=== PATIENT | male | born 1975 | race Caucasian/White ===

== ENCOUNTER 2017-06-17 11:00 | Emergency (ER) | payer OTHER ==
[2017-06-17 11:16] VITALS: O2SAT 97
--- NOTE | 2017-06-17 11:25 | CPEKG ---
Heart Rate: 93 RR Interval: 645 P-R Interval: 140 QRSD Interval: 90 QT Interval: 364 QTC Interval: 453 P Tupman: 37 QRS Tupman: 54 T Wave Tupman: 10 EKG Severity - NORMAL ECG - EKG Impression: SINUS RHYTHM Electronically Signed By: Christine Patel 17-Jun-2017 14:54:26
[2017-06-17 11:31] LABS: PLATELET COUNT 335 10^3/uL (150-400)
--- NOTE | 2017-06-17 11:43 | EDPHY ---
H & P Stated Complaint: dizzy, diaphoretic Time Seen by Provider: 06/17/17 11:20 HPI/ROS: CHIEF COMPLAINT: Diaphoresis, dizziness HISTORY OF PRESENT ILLNESS: 41-year-old male with a known history of hypertension for which he is currently off medications states that he was at work at 10:30 a.m. This morning and started to feel dizziness, diaphoresis, tremulous, noted numbness to his bilateral fingers, felt disoriented. He was taken by his to an urgent care and they recommend he come to the ER. In the ER currently states that he is feeling improvement in symptoms. At no point has he experienced slurred speech, gait instability, chest pain, dyspnea, back or flank pain. Normal urinary habits. PRIMARY CARE PROVIDER: No primary care provider REVIEW OF SYSTEMS: A ten point review of systems was performed and is negative with the exception of the items mentioned in the HPI PAST MEDICAL & SURGICAL HISTORY: Hypertension. Off of antihypertensives x 1 year SOCIAL HISTORY: Nonsmoker no drug use. PHYSICAL EXAM (Prior to examination, patient consented to physical exam, hands were washed and my usual and customary physical exam procedures followed) 1) GENERAL: Well-developed, well-nourished, alert and oriented. Appears to be in no acute distress. 2) HEAD: Normocephalic, atraumatic 3) HEENT: Pupils equal, round, reactive to light bilaterally. Sclera anicteric. Nasopharynx, oropharynx, clear, no lesions. Ears bilaterally with normal tympanic membranes. 4) NECK: Full range of motion, no meningeal signs. No carotid bruit 5) LUNGS: Clear auscultation bilaterally, no wheezes, no rhonchi, no retractions. 6) HEART: Regular rate and rhythm, no murmur, no heave, no gallop. 7) ABDOMEN: No guarding, no rebound, no focal tenderness, negative McBurney's, negative Strange's, negative Rovsing's, negative peritoneal sign, 8) MUSCULOSKELETAL: Moving all extremities, no focal areas of tenderness, no obvious trauma. No peripheral edema or discoloration. 9) BACK: No CVA tenderness, no midline vertebral tenderness, no fluctuance, no step-off, no obvious trauma, no visual or palpable abnormality. 10) SKIN: No rash, no petechiae. 11) Psychiatric: Patient is oriented X 3, there is no agitation. DIFFERENTIAL DIAGNOSIS: In no particular include but not limited to TIA, CVA, CT, acute anxiety, hyperthyroidism - Personal History Current Tetanus/Diphtheria Vaccine: Unsure Current Tetanus Diphtheria and Acellular Pertussis (TDAP): Unsure - Medical/Surgical History Hx Asthma: No Hx Chronic Respiratory Disease: No Hx Diabetes: No Hx Cardiac Disease: No Hx Renal Disease: No Hx Cirrhosis: No Hx Alcoholism: No Hx HIV/AIDS: No Hx Splenectomy or Spleen Trauma: No Other PMH: HTN, - Social History Smoking Status: Never smoked Constitutional: Initial Vital Signs Temperature (C) 37 C 06/17/17 11:13 Heart Rate 96 06/17/17 11:13 Respiratory Rate 16 06/17/17 11:13 Blood Pressure 177/131 H 06/17/17 11:13 O2 Sat (%) 97 06/17/17 11:13 O2 Delivery Mode Room Air Allergies/Adverse Reactions: No Known Allergies Allergy (Unverified 06/17/17 11:13) Home Medications: Medication Instructions Recorded amLODIPine BESYLATE [Norvasc 5 mg 5 mg PO DAILY #30 tab 06/17/17 (*)] Medical Decision Making ED Course/Re-evaluation: The patient was re-evaluated with serial examinations most recently at 10:07 p.m.. He is resting comfortably. He remains hypertensive. I discussed the case with secondary supervising physician Dr. Patel in the ER. According the patient's earlier symptoms I think that CT, CVA, TIA less than likely. We discussed there may be a component of anxiety related to his symptoms. He has a known history of hypertension and currently is hypertensive. Doubt hypertensive crisis. We recommended starting the patient on Norvasc 5 mg recommended keeping a blood pressure diary and stabbing primary care which I have provided him. - Data Points Laboratory Results: Laboratory Results 06/17/17 11:25 06/17/17 11:25 06/17/17 06/17/17 11:25 11:25 WBC 8.68 10^3/uL 10^3/uL (3.80-9.50) RBC 4.97 10^6/uL 10^6/uL (4.40-6.38) Hgb 15.6 g/dL g/dL (13.7-17.5) Hct 45.2 % % (40.0-51.0) MCV 90.9 fL fL (81.5-99.8) MCH 31.4 pg pg (27.9-34.1) MCHC 34.5 g/dL g/dL (32.4-36.7) RDW 13.3 % % (11.5-15.2) Plt Count 335 10^3/uL 10^3/uL (150-400) MPV 9.9 fL fL (8.7-11.7) Neut % (Auto) 68.9 % % (39.3-74.2) Lymph % (Auto) 21.3 % % (15.0-45.0) [place] % (Auto) 7.4 % % (4.5-13.0) Eos % (Auto) 1.4 % % (0.6-7.6) Baso % (Auto) 0.7 % % (0.3-1.7) Nucleat RBC Rel Count 0.0 % % (0.0-0.2) Absolute Neuts (auto) 5.98 10^3/uL 10^3/uL (1.70-6.50) Absolute Lymphs (auto) 1.85 10^3/uL 10^3/uL (1.00-3.00) Absolute Monos (auto) 0.64 10^3/uL 10^3/uL (0.30-0.80) Absolute Eos (auto) 0.12 10^3/uL 10^3/uL (0.03-0.40) Absolute Basos (auto) 0.06 10^3/uL 10^3/uL (0.02-0.10) Absolute Nucleated RBC 0.00 10^3/uL 10^3/uL (0-0.01) Immature Gran % 0.3 % % (0.0-1.1) Immature Gran # 0.03 10^3/uL 10^3/uL (0.00-0.10) Sodium 143 mEq/L mEq/L (135-145) Potassium 4.4 mEq/L mEq/L (3.5-5.2) Chloride 105 mEq/L mEq/L (97-110) Carbon Dioxide 24 mEq/l mEq/l (22-31) Anion Gap 14 mEq/L mEq/L (8-16) BUN 16 mg/dL mg/dL (7-23) Creatinine 1.0 mg/dL mg/dL (0.7-1.3) Estimated GFR > 60 Glucose 93 mg/dL mg/dL (70-100) Calcium 9.8 mg/dL mg/dL (8.5-10.4) Total Bilirubin 1.5 mg/dL H mg/dL (0.1-1.4) AST 24 IU/L IU/L (17-59) ALT 39 IU/L IU/L (21-72) Alkaline Phosphatase 88 IU/L IU/L (38-126) Troponin I < 0.012 ng/mL ng/mL (0.000-0.034) Total Protein 8.4 g/dL H g/dL (6.3-8.2) Albumin 5.1 g/dL H g/dL (3.5-5.0) TSH 1.790 uIU/mL uIU/mL (0.465-4.680) Departure - Departure Disposition: Home, Routine, Self-Care Clinical Impression: Hypertension Qualifiers: Hypertension type: unspecified Qualified Code(s): I10 - Essential (primary) hypertension Condition: Good Instructions: Hypertension (ED) Additional Instructions: Please keep a blood pressure diary. Take your medication as directed. Make an appointment to establish primary care. Referrals: Katya Gannon MD [Medical Doctor] - 2-3 days, call for appt. Prescriptions: amLODIPine BESYLATE [Norvasc 5 mg (*)] 5 mg PO DAILY #30 tab
[2017-06-17 13:34] VITALS: BP 162/122; PULSE 77; RESP 18; TEMP 98.6
== END 2017-06-17 13:30 | disposition home or self-care (01) ==
DX: I10 Essential (primary) hypertension (principal)

== ENCOUNTER → 2017-08-11 | Outpatient (CLI) | payer OTHER | LOC: FIMAGING 06:53 | PROVIDERS: ATTEND Family Medicine | DX: I10 Essential (primary) hypertension (principal) ==

== ENCOUNTER → 2018-06-06 | Outpatient (CLI) | payer OTHER ==
[~2018-06-06] MED LIST: GADOBUTROL 10 ML VIAL IVP ONE
== END ==
LOC: FIMAGING 06:52
PROVIDERS: ATTEND Family Medicine
DX: G44.209 Tension-type headache, unspecified, not intractable (principal); R00.0 Tachycardia, unspecified
CPT/HCPCS: A9585

== ENCOUNTER → 2018-08-11 | Outpatient (CLI) | payer OTHER | LOC: BMCIMAGING 10:32 | PROVIDERS: ATTEND Internal Medicine Rheumatology | DX: Z03.89 Encounter for observation for other suspected diseases and conditions ruled out (principal); R06.02 Shortness of breath ==